=== PATIENT | female | born 1990 | race Caucasian/White ===

== ENCOUNTER 2017-09-12 15:45 | Emergency (ER) | END 2017-09-12 20:25 | disposition home or self-care (01) ==

== ENCOUNTER 2018-03-05 16:33 | Outpatient (CLI) | END 2018-03-05 18:30 | disposition home or self-care (01) ==

== ENCOUNTER 2018-03-14 16:20 | Inpatient (IN) | END 2018-03-17 13:28 | disposition home or self-care (01) | DRG 807 ==